=== PATIENT | female | born 1980 | race Caucasian/White ===

== ENCOUNTER 2016-11-11 17:34 | Emergency (ER) | payer BC ==
[2016-11-11 17:46] VITALS: BP 110/74
--- NOTE | 2016-11-11 17:48 | UC ---
Throat Pain/Nasal Heber HPI - HPI Summary HPI Summary: patient has had 7/10 sore thraot for 2 days, fever and cough - History of Current Complaint Stated Complaint: SORE THROAT Hx Obtained From: Patient Hx Last Menstrual Period: 03/10/16 ?: No Onset/Duration: Sudden Onset, Lasting Days Severity: Severe Pain Intensity: 7 Pain Scale Used: 0-10 Numeric Cough: Nonproductive Associated Signs & Symptoms: Positive: Dysphagia, Fever - Epiglottits Risk Factors Epiglottis Risk Factors: Negative - Allergies/Home Medications Allergies/Adverse Reactions: Allergies Allergy/AdvReac Type Severity Reaction Status Date / Time Oxycodone [From Percocet] AdvReac Vomiting Verified 11/11/16 17:46 Home Medications: Home Medications Ascorbic Acid TAB* [Vitamin C TAB*] 500 mg PO DAILY 11/11/16 [History Confirmed 11/11/16] Cholecalciferol [Vitamin D3] 2,000 unit PO DAILY 11/11/16 [History Confirmed ] PMH/Surg Hx/FS Hx/Imm Hx Previously Healthy: Yes Endocrine History Of: Reports: Thyroid Disease - hypo Cancer History Of: Denies: Breast Cancer - Surgical History Surgical History: Yes Surgery Procedure, Year, and Place: 2 c-sections. tubal ligation. gallbladder. fibroids. lasik eye - Family History Known Family History: Negative: Cardiac Disease, Hypertension - Social History Alcohol Use: Occasionally Alcohol Amount: weekends Substance Use Type: None Smoking Status (MU): Never Smoked Tobacco Review of Systems Constitutional: Fever, Chills Skin: Negative Eyes: Negative ENT: Sore Throat Respiratory: Cough Cardiovascular: Negative Gastrointestinal: Negative Genitourinary: Negative Motor: Negative Neurovascular: Negative Musculoskeletal: Negative Neurological: Negative Psychological: Negative All Other Systems Reviewed And Are Negative: Yes Physical Exam Triage Information Reviewed: Yes Appearance: Well-Nourished, Ill-Appearing, Pain Distress Vital Signs Reviewed: Yes Eye Exam: Normal Eyes: Positive: Conjunctiva Clear ENT Exam: Normal ENT: Positive: Normal ENT inspection, Hearing grossly normal, Pharyngeal erythema, Nasal congestion, TMs normal, Tonsillar swelling, Tonsillar exudate Dental Exam: Normal Neck exam: Normal Neck: Positive: Supple, Nontender, No Lymphadenopathy Respiratory Exam: Normal Respiratory: Positive: Chest non-tender, No respiratory distress, No accessory muscle use, Wheezing, Inspiration Cardiovascular Exam: Normal Cardiovascular: Positive: RRR, No Murmur, Pulses Normal Abdominal Exam: Normal Abdomen Description: Positive: Nontender, No Organomegaly, Soft Bowel Sounds: Positive: Present Musculoskeletal Exam: Normal Musculoskeletal: Positive: Strength Intact, ROM Intact, No Edema Neurological Exam: Normal Psychological Exam: Normal Skin Exam: Normal Throat Pain/Nasal Course/Dx - Course Course Of Treatment: hx obtained, exam performed, meds reviewed, strep test obtained. - Differential Dx/Diagnosis Provider Diagnoses: bronchitis Discharge - Discharge Plan Condition: Stable Disposition: HOME Prescriptions: Albuterol HFA INHALER* [Ventolin HFA Inhaler*] 2 puff INH Q4H PRN #1 mdi PRN Reason: Cough Patient Education Materials: Acute Bronchitis (ED) Additional Instructions: Take the medication as prescribed. Increase your fluid intake and get plenty of rest. Tylenol and Ibuprofen as needed for pain and fever.
== END 2016-11-11 18:30 | disposition home or self-care (01) ==
LOC: UCCORT 17:34
DX: J40 Bronchitis, not specified as acute or chronic (principal); Z88.5 Allergy status to narcotic agent
CPT/HCPCS: 87651; 99212; G0463

== ENCOUNTER 2017-03-09 08:55 | Emergency (ER) | payer BC ==
[2017-03-09 11:21] VITALS: BP 117/72
--- NOTE | 2017-03-09 11:41 | UC ---
Complaint Female HPI - HPI Summary HPI Summary: 2 week history of increasing pain and tenderness in the right posterior labia, consistent with a Bartholin's cyst. Increasing pain today, not controlled with analgesics. Dr. Mario's office sent her here because they are not able to see her until next week. - History Of Current Complaint Chief Complaint: UCSkin Stated Complaint: BARTHOLIN CYST Time Seen by Provider: 03/09/17 10:16 Hx Obtained From: Patient Hx Last Menstrual Period: 02/09/17 ?: No Onset/Duration: Gradual Onset, Lasting Weeks - 2 Timing: Constant Severity Initially: Moderate Severity Currently: Moderate Pain Intensity: 8 Pain Scale Used: 0-10 Numeric Character: Dull Aggravating Factor(s): Movement Alleviating Factor(s): Position Associated Signs And Symptoms: Positive: Negative - Risk Factors Ectopic Risk Factor: Negative Ovarian Torsion Risk Factor: Negative - Allergies/Home Medications Allergies/Adverse Reactions: Allergies Allergy/AdvReac Type Severity Reaction Status Date / Time Oxycodone [From Percocet] AdvReac Vomiting Verified 03/09/17 09:30 Home Medications: Home Medications Naproxen TAB* [Naprosyn 250 mg TAB*] 250 mg PO Q8H PRN 03/09/17 [History Confirmed 03/09/17] PMH/Surg Hx/FS Hx/Imm Hx Endocrine History: Hypothyroidism GI/ History: Other - irritable bowel syndrome and gastroparesis Other GI/ History: Cesarian sections - Surgical History Surgical History: Yes Surgery Procedure, Year, and Place: 2 c-sections. tubal ligation. gallbladder. fibroids. 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 Past cholecystectomy Genitourinary: Other - vulvar pain Motor: Negative Neurovascular: Negative Musculoskeletal: Negative Neurological: Negative Psychological: Negative All Other Systems Reviewed And Are Negative: Yes Physical Exam Triage Information Reviewed: Yes Appearance: Pain Distress - moderate., Thin Vital Signs: Initial Vital Signs Temp 99.8 F 03/09/17 09:32 Pulse 93 03/09/17 09:32 Resp 16 03/09/17 09:32 BP 121/59 03/09/17 09:32 Pulse Ox 100 03/09/17 09:32 Vital Signs Reviewed: Yes ENT Exam: Normal Respiratory: Positive: Lungs clear Cardiovascular: Positive: RRR, No Murmur Abdomen Description: Positive: Nontender, Soft, Other: - right posterior vulva with 5 x 6 cm cyst without pointing, firm, exquisitely tender. Musculoskeletal Exam: Normal Neurological Exam: Normal Psychological Exam: Normal Skin Exam: Normal Complaint Female Dx - Course Course Of Treatment: Bartholin's cyst - Differential Dx/Diagnosis Differential Diagnosis/HQI/PQRI: Bartholin Cyst Provider Diagnoses: Bartholin's cyst Discharge - Discharge Plan Condition: Stable Disposition: HOME Patient Education Materials: Bartholin Cyst (ED) Referrals: Vineet Oneal DO [Primary Care Provider] - Maliha Aggarwal MD [Medical Doctor] - Additional Instructions: You have an appointment with Dr. Maliha Aggarwal at [facility] this afternoon at 13:45 (seeing Dr. Aggarwal at 14:00--requested to arrive for paper work prior to the visit.
== END 2017-03-09 12:40 | disposition home or self-care (01) ==
LOC: UCCORT 08:55
DX: N75.0 Cyst of Bartholin's gland (principal); E03.9 Hypothyroidism, unspecified; K58.9 Irritable bowel syndrome, unspecified; K31.84 Gastroparesis; Z90.49 Acquired absence of other specified parts of digestive tract; Z88.5 Allergy status to narcotic agent
CPT/HCPCS: 99212; G0463

== ENCOUNTER 2017-03-13 11:26 | Day surgery (SDC) | payer BC ==
[2017-03-13] MEDS ORDERED: Ondansetron INJ* 2 MG/ML VIAL IV ONE (12:33)
[2017-03-13] MEDS ORDERED: Morphine INJ* 4 MG/ML 1 ML SYRINGE IV ONE (12:33)
[2017-03-13] MEDS ORDERED: NS 0.9% 1000 ML* 1,000 ML IV ONE (12:33)
[2017-03-13 13:26] LABS: Hematocrit 42 % (35-47); Hemoglobin 14.1 g/dl (12.0-16.0); Mean Corpuscular HGB Conc 34 g/dl (31-36); Mean Corpuscular Hemoglobin 32 pg (27-31); Mean Corpuscular Volume 95 fL (80-97); Mean Platelet Volume 9 um3 (7.4-10.4); Red Blood Count 4.39 10^6/ul (4.0-5.4); Red Cell Distribution Width 12 % (10.5-15); White Blood Count 16.4 10^3/ul (3.5-10.8)
[2017-03-13 13:38] LABS: ALT 11 U/L (7-52); Albumin 4.1 g/dL (3.2-5.2); Alkaline Phosphatase 70 U/L (34-104); BUN/Creatinine Ratio 17.6 (8-20); Blood Urea Nitrogen 12 mg/dL (6-24); C Reactive Protein 28.37 mg/L (< 5.00); CO2 Carbon Dioxide 22 mmol/L (22-32); Calcium 9.8 mg/dL (8.6-10.3); Chloride 105 mmol/L (101-111); EGFR African American 125.2 (>60); EGFR Non-African American 97.4 (>60); Globulin 4.4 g/dL (2-4); Glucose 82 mg/dL (70-100); Sodium 135 mmol/L (133-145); Total Protein 8.5 g/dL (6.4-8.9)
[2017-03-13 14:29] LABS: Anion Gap 8 mmol/L (2-11)
--- NOTE | 2017-03-13 14:33 | ED ---
GI/ HPI - HPI Summary HPI Summary: Patient underwent drainage of a Bartholen's cyst [address] Francis at [facility]. Since then she has had increased swelling, pain and redness. She denies fever, chills or constitutional symptoms. She call [facility] today who told her to come to the ED. - History of Current Complaint Chief Complaint: EDUrogenitalProblems Time Seen by Provider: 03/13/17 12:08 Stated Complaint: INFECTED CYST/SENT BY [facility]. Hx Obtained From: Patient, Family/Oyster Buyer Onset/Duration: Started Days Ago Timing: Constant Severity: Mild Current Severity: Severe Pain Intensity: 9 Location of Pain: Groin - right labia Additional Location for Females: Vulva Pain Characteristics: Sharp, Aching, Pressure Associated Signs and Symptoms: Positive: Negative. Negative: Fever Additional Signs & Symptoms: Positive: Genital Swelling Aggravating Factor(s): Movement, Activity Alleviating Factor(s): Nothing - Allergy/Home Medications Allergies/Adverse Reactions: Allergies Allergy/AdvReac Type Severity Reaction Status Date / Time Oxycodone [From Percocet] AdvReac Vomiting Verified 03/09/17 09:30 PMH/Surg Hx/FS Hx/Imm Hx Endocrine/Hematology History: Reports: Hx Thyroid Disease - hypo - Cancer History Hx Chemotherapy: No Hx Radiation Therapy: No - Surgical History Surgery Procedure, Year, and Place: 2 c-sections. tubal ligation. gallbladder. fibroids. lasik eye Infectious Disease History: No Infectious Disease History: Denies: Traveled Outside the [place] in Last 30 Days - Family History Known Family History: Positive: None Negative: Cardiac Disease, Hypertension - Social History Occupation: Employed Full-time Lives: With Family Alcohol Use: Occasionally Alcohol Amount: weekends Substance Use Type: Reports: None Smoking Status (MU): Never Smoked Tobacco Review of Systems Negative: Fever, Chills Positive: pain - vaginal and right labia majora All Other Systems Reviewed And Are Negative: Yes Physical Exam Triage Information Reviewed: Yes Vital Signs On Initial Exam: Initial Vitals Temp Pulse Resp BP Pulse Ox 99.1 F 105 18 117/77 99 03/13/17 11:50 03/13/17 11:50 03/13/17 11:50 03/13/17 11:50 03/13/17 11:50 Vital Signs Reviewed: Yes Appearance: Positive: Well-Appearing, Pain Distress, Thin Skin: Positive: Warm, Skin Color Reflects Adequate Perfusion, Dry, Soft Head/Face: Positive: Normal Head/Face Inspection Eyes: Positive: EOMI, JIM, Conjunctiva Clear ENT: Positive: Hearing grossly normal Respiratory/Lung Sounds: Positive: Clear to Auscultation, Breath Sounds Present Cardiovascular: Positive: RRR Abdomen Description: Positive: Soft. Negative: Nontender Bowel Sounds: Positive: Present Pelvic Exam: Positive: other - right labia majora edema; patient will not let me touch the area Musculoskeletal: Positive: Strength/ROM Intact Neurological: Positive: Sensory/Motor Intact, Alert, Oriented to Person Place, Time, NV Bundle Intact Distally, Abnormal Gait Psychiatric: Positive: Affect/Mood Appropriate AVPU Assessment: Alert - Abundio Coma Scale Coma Scale Total: 15 Diagnostics - Vital Signs Vital Signs Temp Pulse Resp BP Pulse Ox 03/13/17 13:16 83 99 03/13/17 13:15 116/66 03/13/17 13:07 18 03/13/17 12:15 99.1 F 105 18 117/77 99 03/13/17 11:50 99.1 F 105 18 117/77 99 - Laboratory Lab Results: Lab Results 03/13/17 03/13/17 Range/Units 13:15 13:15 WBC 16.4 H (3.5-10.8) 10^3/ul RBC 4.39 (4.0-5.4) 10^6/ul Hgb 14.1 (12.0-16.0) g/dl Hct 42 (35-47) % MCV 95 (80-97) fL MCH 32 H (27-31) pg MCHC 34 (31-36) g/dl RDW 12 (10.5-15) % Plt Count 271 (150-450) 10^3/ul MPV 9 (7.4-10.4) um3 Neut % (Auto) 83.3 H (38-83) % Lymph % (Auto) 9.1 L (25-47) % [place] % (Auto) 7.2 (1-9) % Eos % (Auto) 0.1 (0-6) % Baso % (Auto) 0.3 (0-2) % Absolute Neuts (auto) 13.6 H (1.5-7.7) 10^3/ul Absolute Lymphs (auto) 1.5 (1.0-4.8) 10^3/ul Absolute Monos (auto) 1.2 H (0-0.8) 10^3/ul Absolute Eos (auto) 0 (0-0.6) 10^3/ul Absolute Basos (auto) 0.1 (0-0.2) 10^3/ul Absolute Nucleated RBC 0.02 10^3/ul Nucleated RBC % 0.1 Sodium 135 (133-145) mmol/L Potassium Pending Chloride 105 (101-111) mmol/L Carbon Dioxide 22 (22-32) mmol/L Anion Gap Pending BUN 12 (6-24) mg/dL Creatinine 0.68 (0.51-0.95) mg/dL Est GFR ( Amer) 125.2 (>60) Est GFR (Non-Af Amer) 97.4 (>60) BUN/Creatinine Ratio 17.6 (8-20) Glucose 82 (70-100) mg/dL Calcium 9.8 (8.6-10.3) mg/dL Total Bilirubin 1.40 H (0.2-1.0) mg/dL AST Pending ALT 11 (7-52) U/L Alkaline Phosphatase 70 (34-104) U/L C-Reactive Protein 28.37 H (< 5.00) mg/L Total Protein 8.5 (6.4-8.9) g/dL Albumin 4.1 (3.2-5.2) g/dL Globulin 4.4 H (2-4) g/dL Albumin/Globulin Ratio 0.9 L (1-3) Result Diagrams: 03/13/17 13:15 03/13/17 14:35 Lab Statement: Any lab studies that have been ordered have been reviewed, and results considered in the medical decision making process. GIGU Course/Dx - Diagnoses Differential Diagnoses - Female: Bartholin Cyst, Cervicitis, Hemorrhoids, , Sepsis, Urinary Tract Infection, Vaginitis Provider Diagnoses: Bartholin's gland infection - Physician Notifications Discussed Care Of Patient With: Dr. Aggarwal, [facility] Instructed by Provider To: Other - Admit to the O.R. Discharge - Discharge Plan Condition: Stable Disposition: ADMITTED TO [facility] Referrals: Vineet Oneal DO [Primary Care Provider] -
[2017-03-13] MEDS ORDERED: ceFAZolin 2 GM PREMIX(*) 2 GM/50 ML BAG IVPB SCH ×2 (14:46→15:00)
[2017-03-13] MEDS ORDERED: ceFAZolin 2 GM PREMIX(*) 2 GM/50 ML BAG IVPB ONE (14:47)
[2017-03-13 14:54] LABS: UR Preg Kit Lot# 7010135
[2017-03-13 14:55] LABS: Manual Entry Verification AS; UR Preg Internal Control QC Line Present
[2017-03-13 15:03] LABS: Urine Bacteria 1+ (Absent); Urine Bilirubin Negative (Negative); Urine Glucose Negative (Negative); Urine Nitrite Negative (Negative)
[2017-03-13] MEDS ORDERED: oxyCODONE/Acetamin 5/325 MG* TAB PO PRN (19:44)
[2017-03-13] MEDS ORDERED: HYDROmorphone* 1 MG/ML 1 ML SYR IV PRN (19:44)
[2017-03-13] MEDS ORDERED: DiMENhydriNATE IV* 50 MG/ML VIAL IV PUSH PRN (19:44)
[2017-03-13] MEDS ORDERED: Ibuprofen TAB* 600 MG PO PRN (20:38)
[2017-03-13 21:40] VITALS: BP 114/74
--- NOTE | 2017-03-14 17:55 | OP ---
DATE OF OPERATION: 03/13/17 - [facility] DATE OF : 78 SURGEON: Maliha Aggarwal MD ANESTHESIOLOGIST: Dr. Robles. ANESTHESIA: General endotracheal anesthesia with LMA. PRE-OP DIAGNOSIS: Right Bartholin's abscess. POST-OP DIAGNOSIS: Right Bartholin's abscess. OPERATIVE PROCEDURE: Incision, drainage, and marsupialization of the Bartholin' s abscess. FINDINGS: A 5 cm in width x 6 cm in height right Bartholin's abscess with some surrounding edema, also large amount of pus drained. CONDITION: The patient was brought to recovery room awake and in stable condition. COMPLICATIONS: None. COUNT: Sponge, lap, and needle count were correct x2. DESCRIPTION OF PROCEDURE: The patient was brought to the operating room. When general anesthesia was found to be adequate, the patient was prepped and draped in the usual sterile fashion in the dorsal lithotomy position. A time-out was performed. There was no drainage from previous incision site. A 1.5-cm elliptical incision was made just over the abscess on the inner aspect of the right labia, just lateral to the hymenal ring. Large amount of pus was drained. Any loculations were gently opened with a Luba clamp. The cyst wall was then sewn to the mucosa with 6 interrupted sutures of 4-0 Vicryl. Excellent hemostasis was achieved. Sponge, lap, and needle count were correct x2 and the patient was brought to recovery room awake and in stable condition. [id number]/CPS #: [id number] [facility]
== END 2017-03-13 19:07 | disposition home or self-care (01) ==
LOC: ED 11:26 → OR 19:07
PROVIDERS: ATTEND Obstetrics & Gynecology
DX: N75.1 Abscess of Bartholin's gland (principal)
CPT/HCPCS: 36415; 80053; 81003; 81015; 81025; 85025; 86140; 87070; 87077; 87086; 87186; 87205; J0690; J2270; J2405

== ENCOUNTER 2017-06-06 08:52 | Emergency (ER) | payer BC ==
[2017-06-06 09:14] VITALS: BP 124/71
--- NOTE | 2017-06-06 09:23 | UC ---
Complaint Female HPI - HPI Summary HPI Summary: burning with urination x 1 day + frequency, urgency, no fever, no chills, no flank pain - History Of Current Complaint Chief Complaint: UCGU Stated Complaint: URINARY COMPLAINT Time Seen by Provider: 06/06/17 09:04 Hx Obtained From: Patient Hx Last Menstrual Period: one week ?: No Onset/Duration: Gradual Onset, Lasting Days - 1, Still Present Timing: Constant Severity Initially: Moderate Severity Currently: Moderate Character: Burning Aggravating Factor(s): Urination Associated Signs And Symptoms: Negative: Fever, Back Pain, Vaginal Bleeding/ Discharge, Vaginal Discharge, Nausea, Vomiting(# Of Episodes =), Genital Swelling, Genital Blisters, Retained Foregin Body (Specify) - Allergies/Home Medications Allergies/Adverse Reactions: Allergies Allergy/AdvReac Type Severity Reaction Status Date / Time Oxycodone [From Percocet] AdvReac Vomiting Verified 06/06/17 09:13 Home Medications: Home Medications Probiotic Product [Align] 4 mg PO DAILY 06/06/17 [History Confirmed 06/06/17] PMH/Surg Hx/FS Hx/Imm Hx Previously Healthy: Yes - Surgical History Surgical History: Yes Surgery Procedure, Year, and Place: 2 c-sections; marsupialization 02/2017. tubal ligation. gallbladder. fibroids. lasik eye - Family History Known Family History: Positive: None Negative: Cardiac Disease, Hypertension, Diabetes - Social History Alcohol Use: Occasionally Alcohol Amount: weekends Substance Use Type: None Smoking Status (MU): Never Smoked Tobacco - Immunization History Most Recent Tetanus Shot: unknown Review of Systems Constitutional: Negative Skin: Negative Eyes: Negative ENT: Negative Respiratory: Negative Cardiovascular: Negative Gastrointestinal: Negative Genitourinary: Dysuria, Frequency, Urgency Motor: Negative Neurovascular: Negative Musculoskeletal: Negative Neurological: Negative Psychological: Negative Is Patient Immunocompromised?: No All Other Systems Reviewed And Are Negative: Yes Physical Exam Triage Information Reviewed: Yes Appearance: Well-Appearing, No Pain Distress, Well-Nourished Vital Signs: Initial Vital Signs Temp 98.7 F 06/06/17 09:04 Pulse 81 06/06/17 09:04 Resp 18 06/06/17 09:04 BP 124/71 06/06/17 09:04 Vital Signs Reviewed: Yes Eyes: Positive: Conjunctiva Clear ENT: Positive: Normal ENT inspection, Hearing grossly normal, Pharynx normal Neck exam: Normal Neck: Positive: Supple, Nontender, No Lymphadenopathy Respiratory: Positive: Chest non-tender, Lungs clear, Normal breath sounds Cardiovascular: Positive: RRR, No Murmur, Pulses Normal Abdomen Description: Positive: Nontender, Soft. Negative: CVA Tenderness (R), CVA Tenderness (L), Distended, Guarding Bowel Sounds: Positive: Present Complaint Female Dx - Differential Dx/Diagnosis Provider Diagnoses: UTI Discharge - Discharge Plan Condition: Stable Disposition: HOME Prescriptions: Sulfamethox/Trimethoprim DS* [Bactrim DS 800/160 TAB*] 1 tab PO BID #14 tab Patient Education Materials: Urinary Tract Infection in Women (ED) Referrals: Vineet Oneal DO [Primary Care Provider] - If Needed
== END 2017-06-06 09:25 | disposition home or self-care (01) ==
LOC: UCCORT 08:52
DX: N39.0 Urinary tract infection, site not specified (principal); B96.20 Unspecified Escherichia coli [E. coli] as the cause of diseases classified elsewhere; Z88.5 Allergy status to narcotic agent
CPT/HCPCS: 81003; 87077; 87086; 87186; 99212; G0463

== ENCOUNTER 2017-12-17 09:29 | Day surgery (SDC) | payer BC ==
[2017-12-17] MEDS ORDERED: Morphine INJ* 4 MG/ML 1 ML SYRINGE (NEW SYRINGE VERSION) IV ONE (10:32)
[2017-12-17] MEDS ORDERED: Ondansetron INJ* 2 MG/ML VIAL IV ONE (10:32)
[2017-12-17 10:48] LABS: ABS Basophils 0 10^3/ul (0-0.2); ABS Eosinophils 0 10^3/ul (0-0.6); ABS Lymphocytes 1.6 10^3/ul (1.0-4.8); ABS Monocytes 0.6 10^3/ul (0-0.8); ABS Nucleated RBC 0 10^3/ul; Eosinophil % 0.3 % (0-6); Hematocrit 40 % (35-47); Hemoglobin 13.6 g/dl (12.0-16.0); Lymphocyte % 19.2 % (25-47); Mean Corpuscular HGB Conc 34 g/dl (31-36); Mean Corpuscular Hemoglobin 33 pg (27-31); Mean Corpuscular Volume 97 fL (80-97); Mean Platelet Volume 8.9 um3 (7.4-10.4); Nucleated Red Blood Cells % 0; Platelet Count 238 10^3/ul (150-450); Red Blood Count 4.13 10^6/ul (4.0-5.4); Red Cell Distribution Width 12 % (10.5-15); White Blood Count 8.2 10^3/ul (3.5-10.8)
--- NOTE | 2017-12-17 10:50 | ED ---
GI/ HPI - HPI Summary HPI Summary: Patient here with what she believes is a Bartholin cyst along the right side of her vagina. She reports symptoms started a week and half ago with an itching sensation along the right side of her vagina. She suspected this may have been a yeast infection so tried [id number] treatment without relief. She reports no discharge associated with this pruritus. Over the course of the next couple days the area started to swell and she suspected she may have a Bartholin cyst. This was quite painful and so she came to the emergency department on Monday for evaluation. Per patient, was told this was most likely not large enough to require drainage or surgery - sent home to monitor ( notes confirm providers - ED and DEVELOPMENT CHEMIST - did not feel this was large enough for drainage - offered anbx in the interum however pt declined). She reports since then, the area has become much more swollen and painful causing her to feel like her "vagina is lopsided" and has pain with wiping and walking. In the past 2 days, she also reports she's developed a vaginal discharge which is comparable to a previous bacterial vaginosis infection she's had. She called her truck spotter who prescribed Flagyl for her by mouth over the phone. She's been taking this however did not take this morning as this causes her to have diarrhea and she did not want to have diarrhea during her evaluation here today. She denies fevers, chills, abdominal pain, lymph node swelling in her groin area. She is however in a lot of pain and is requesting a marsupialization of this area as she had this done 1 year ago on the same side. She feels the swelling started further up into her vagina this time as opposed to last time. Last time she also had drainage performed in DEVELOPMENT CHEMIST's office however this did not alleviate the pain as swelling returned same day, cyst grew and resulted in marsupialization surgery anyway. She requests to not have this drained today but rather to have appropriate surgery as necessary as she's fearful a simple drainage will not take care of the issue. She reports she felt like a "new woman" after marsupialization surgery - pain gone, was able to walk and no issues since until now. Past medical history significant for gastroparesis and IBS status post cholecystectomy. She takes and struggles with bowel symptoms daily. She also has hypothyroidism which was triggered during a - treats with levothyroxine. She had a tubal ligation and has had a vascetomy. LMP 3 weeks ago. She admits to complications as a result of c-sections (both pregnancies were ). She vomited after an epidural which causes a hole which did not take blood patch well. She also developed a seroma after one of the c-sections. She is otherwise healthy and denies cardiac/pulm issues - no sleep apnea, dental implants, etc. She has oxycodone listed in her allergies but this is simply here as she had nausea w/ vomiting - no hives or anaphylactic sx. Last PO intake was at 7:00am today - 1/2 c coffee. - History of Current Complaint Chief Complaint: EDRashSkinAbscess Time Seen by Provider: 12/17/17 09:49 Stated Complaint: BARTHILUM CYST Hx Obtained From: Patient Hx Last Menstrual Period: one week Pain Intensity: 10 - Allergy/Home Medications Allergies/Adverse Reactions: Allergies Allergy/AdvReac Type Severity Reaction Status Date / Time oxycodone Allergy Vomiting Verified 12/17/17 09:32 Home Medications: Home Medications Bifidobacterium Infantis [Align] 4 mg PO DAILY 12/17/17 [History Confirmed 12/17] metroNIDAZOLE TAB* [Flagyl 250 mg TAB*] 500 mg PO Q12HR 12/17/17 [History Confirmed 12/17/17] PMH/Surg Hx/FS Hx/Imm Hx Previously Healthy: Yes Endocrine/Hematology History: Reports: Hx Thyroid Disease - hypo -takes synthroid Cardiovascular History: Denies: Hx Atrial Fibrillation, Hx Congenital Heart Disease, Hx Myocardial Infarction Respiratory History: Denies: Hx Asthma, Hx Sleep Apnea GI History: Reports: Hx Gall Bladder Disease - s/p cholecystectomy, Hx Irritable Bowel, Other GI Disorders - gastroparesis History: Reports: Other Problems/Disorders - Rt Bartholin's cyst requiring marsupialization - Cancer History Hx Chemotherapy: No Hx Radiation Therapy: No - Surgical History Surgery Procedure, Year, and Place: 2 c-sections; marsupialization 02/2017. tubal ligation. gallbladder. fibroids. lasik eye Infectious Disease History: No Infectious Disease History: Denies: Traveled Outside the [place] in Last 30 Days - Family History Known Family History: Positive: None Negative: Cardiac Disease, Hypertension, Diabetes - Social History Lives: With Family Alcohol Use: Weekly Alcohol Amount: weekends wine Hx Substance Use: No Substance Use Type: Reports: None Hx Tobacco Use: No Smoking Status (MU): Never Smoked Tobacco Review of Systems Constitutional: Negative Negative: Fever, Chills, Fatigue Cardiovascular: Negative Respiratory: Negative Gastrointestinal: Negative Positive: see HPI Musculoskeletal: Negative Skin: Negative Neurological: Negative Positive: Anxious All Other Systems Reviewed And Are Negative: Yes Physical Exam Triage Information Reviewed: Yes Vital Signs On Initial Exam: Initial Vitals Temp Pulse Resp BP Pulse Ox 98.3 F 123 18 139/101 100 12/17/17 09:32 12/17/17 09:32 12/17/17 09:32 12/17/17 09:32 12/17/17 09:32 Vital Signs Reviewed: Yes Appearance: Positive: Well-Appearing, Well-Nourished, Pain Distress Skin: Positive: Warm, Skin Color Reflects Adequate Perfusion, Dry Head/Face: Positive: Normal Head/Face Inspection Eyes: Positive: Normal, EOMI, Conjunctiva Clear ENT: Positive: Normal ENT inspection, Hearing grossly normal, Pharynx normal Respiratory/Lung Sounds: Positive: Breath Sounds Present Cardiovascular: Positive: Normal. Negative: Leg Edema Left, Leg Edema Right Abdomen Description: Positive: Nontender, No Organomegaly, Soft Pelvic Exam: Positive: Other - Rt labia w/ leonidas edema and exquisite TTP - skin clear; Rt vaginal mucosa into canal w/ erythema/edema - TTP - no lesions observed; milky/creamy vaginal d/c in introitus - no blood observed; no palpably enlarged LN's in groin B/L - skin is clear throughout the area Musculoskeletal: Positive: Normal, Strength/ROM Intact Neurological: Positive: Normal, Sensory/Motor Intact, Alert, Oriented to Person Place, Time, CN Intact II-III Psychiatric: Positive: Anxious - however pleasant and cooperative Diagnostics - Vital Signs Vital Signs Temp Pulse Resp BP Pulse Ox 12/17/17 10:30 87 111/65 100 12/17/17 10:00 84 119/75 100 12/17/17 09:46 97 100 12/17/17 09:44 119/70 12/17/17 09:32 98.3 F 123 18 139/101 100 - Laboratory Result Diagrams: 12/17/17 09:50 12/17/17 09:50 Lab Statement: Any lab studies that have been ordered have been reviewed, and results considered in the medical decision making process. Re-Evaluation - Re-Evaluation First Eval Change: Improved - s/p morphine Second Eval Change: Worse - pain worse s/p eval w/ Dr. Cerda - will order toradol GIGU Course/Dx - Course Course Of Treatment: Pt presents w/ Rt sided vaginal pain and swelling over the past 1-1/2 weeks. She has a history of Bartholin's Cyst in the same area and reports this feels the same. After examination, I agree this appears to be a Bartholin cyst. Labs and vitals assessed and appear to be within normal limits. Discussed w/ Dr. Cerda who agrees to see pt - after evaluating, he will take her to OR for marsupialization. She has been NPO since here (see HPI for pre-op intake). She had initial pain relief with IV morphine however after second exam of the area reports worsening of pain. Toradol ordered (okay'd by Dr. Cerda). Patient stable at time of transition of care. - Diagnoses Provider Diagnoses: Cyst of right Bartholin's gland Discharge - Sign-Out/Discharge Documenting (check all that apply): Discharge - Discharge Plan Condition: Stable Disposition: ADMITTED TO [facility] - Billing Disposition and Condition Condition: STABLE [place] [facility] [place]
[2017-12-17 10:59] LABS: EGFR Non-African American 85.2 (>60)
[2017-12-17] MEDS ORDERED: NS 0.9% 1000 ML* 1,000 ML IV SCH ×2 (11:15→13:15)
[2017-12-17] MEDS ORDERED: Naloxone* 0.4 MG/ML 1 ML VIAL IV PRN (12:38)
[2017-12-17] MEDS ORDERED: fentaNYL* 50 MCG/ML 2 ML VIAL (100 MCG VIAL) IV PRN (12:38)
[2017-12-17] MEDS ORDERED: Scopolamine 1.5 mg* PATCH TRANSDERM PRN (12:38)
[2017-12-17] MEDS ORDERED: DiMENhydriNATE IV* 50 MG/ML VIAL IV PUSH PRN (12:38)
[2017-12-17] MEDS ORDERED: Morphine INJ* 2 MG/ML 1 ML CARPUJECT IV PRN (12:38)
[2017-12-17] MEDS ORDERED: PROCHLORPERAZINE INJ 5 MG/ML 2 ML VIAL IV PRN (12:38)
[2017-12-17] MEDS ORDERED: oxyCODONE/Acetamin 5/325 MG* TAB PO PRN (12:38)
[2017-12-17] MEDS ORDERED: Famotidine IV* 10 MG/ML 2 ML (20 mg) IV ONE (12:38)
[2017-12-17] MEDS ORDERED: Ketorolac INJ* 30 MG/ML 1 ML VIAL IV PUSH ONE (13:02)
[2017-12-17] MEDS ORDERED: Midazolam* 1 MG/ML 5 ML VIAL (5 MG) ONE (14:06)
[2017-12-17] MEDS ORDERED: fentaNYL* 50 MCG/ML 2 ML VIAL (100 MCG VIAL) ONE (14:06)
[2017-12-17] MEDS ORDERED: Famotidine IV* 10 MG/ML 2 ML (20 mg) ONE (14:07)
[2017-12-17] MEDS ORDERED: Scopolamine 1.5 mg* PATCH ONE (14:07)
[2017-12-17] MEDS ORDERED: Propofol* 10 MG/ML 20 ML BTL IV PUSH ONE (15:30)
[2017-12-17] MEDS ORDERED: Ondansetron INJ* 2 MG/ML VIAL ONE (15:30)
[2017-12-17] MEDS ORDERED: Dexamethasone IV* 4 MG/ML 1 ML (4 MG) ONE (15:30)
[2017-12-17] MEDS ORDERED: PROCHLORPERAZINE INJ 5 MG/ML 2 ML VIAL ONE ×3 (15:30→17:04)
[2017-12-17] MEDS ORDERED: Lidocaine 2% PF * 5 ML VIAL ONE (15:30)
[2017-12-17] MEDS ORDERED: Morphine INJ* 10 MG/ML 1 ML CARPUJECT ONE (15:36)
[2017-12-17] MEDS ORDERED: Lidocaine 1% INJ* 10 MG/ML 30 ML SDV ONE (15:46)
[2017-12-17 17:15] VITALS: BP 118/62
--- NOTE | 2017-12-19 09:20 | OP ---
DATE OF OPERATION: 12/17/17 - SDS DATE OF : 78 SURGEON: Romeo Cerda MD ANESTHESIA: General with a laryngeal mask. PRE-OP DIAGNOSIS: Right Bartholin's abscess. POST-OP DIAGNOSIS: Right Bartholin's abscess. OPERATIVE PROCEDURE: Incision and drainage of a marsupialization of Bartholin' s glands abscess. ESTIMATED BLOOD LOSS: Minimal, less than 5 cc. SPECIMENS SENT TO PATHOLOGY: Cultures of the abscess. IV FLUIDS: She received 1 L of IV crystalloid fluid. URINE OUTPUT: Clear about 250 cc. FINDINGS: Exam under anesthesia revealed 3 to 4 cm inflamed right Bartholin's cyst abscess. DESCRIPTION OF PROCEDURE: The patient was taken to the operating room where she was identified. She was placed on the operating table where a general anesthetic was obtained without difficulty. She was then placed in the dorsal lithotomy position, prepped and draped in normal sterile fashion. At this point , attention was then brought on to the patient's perineum. The bladder was catheterized with a straight catheter and drained of clear urine. Exam under anesthesia revealed a right Bartholin's gland cyst. I decided to make an incision on the torsion between the vaginal mucosa and the Bartholin's gland cyst about 1 cm long in a vertical incision. Once the incision was made, the cyst drained of a pus-like discharge. The contents within the cyst were cultured and sent to the Pathology. I then proceeded to break the loculations within the cyst using a blunt instrument. Once the cyst was completely empties and the loculations were broken, I proceeded to irrigate the cyst with normal saline until clear water came out. I injected 1% lidocaine into the cyst as well and this drained as well. After which, I then proceeded to the incision by using a 4-0 Monocryl stitch in a purse-string suture circumferentially. Stoma was left open for the drain. At this point, all the instruments were removed from the patient's vagina. Sponge, lap and needle counts were correct x2. She was then transferred to recovery room area in stable condition. [id number]/[facility] #: [id number] MTDD
[2017-12-20] MEDS ORDERED: Scopolamine PATCH Remove* 1 NOTE MISC PATCH OFF ONE (12:39)
== END 2017-12-17 17:32 | disposition home or self-care (01) ==
LOC: ED 09:29 → OR 12:56
PROVIDERS: ATTEND Obstetrics & Gynecology
DX: N75.1 Abscess of Bartholin's gland (principal); R10.2 Pelvic and perineal pain; E03.9 Hypothyroidism, unspecified; F41.9 Anxiety disorder, unspecified; K58.9 Irritable bowel syndrome, unspecified; K31.84 Gastroparesis
CPT/HCPCS: 36415; 80053; 83605; 84702; 85025; 86140; 87070; 87073; 87077; 87186; 87205; 87640; 87641; 99284; A9270-GY; J0780; J1100; J1885; J2250; J2270; J2405; J2704; J3010

== ENCOUNTER 2018-08-19 08:18 | Emergency (ER) | payer BC ==
--- OUTSIDE RECORDS SUMMARY | 2018-08-19 08:31 | XMS REPORT | Continuity of Care Document ---
:1980 External Reference #:[id number] Author Name Anayeli Melton Care Team Providers Name Role Phone Vineet Oneal MD Primary Care Physician Unavailable Payers Type Date Identification Numbers Payment Provider Subscriber Policy Number: [id number] [employer]/[facility] Shanique Cordova PayID: [id number] [address] [address] [place] [address] Advance Directives Description No Information Available Problems Description No Information Family History Date Family Member(s) Problem(s) Comments Father Hypertension Father Hypercholesterolemia Mother Hypertension Mother Depression Mother Bipolar Disorder Children 2 First Son A&W First Daughter A&W Siblings 2 First Brother Hypertension Second Brother Alive, HX Unknown Paternal Grandfather due to [place] () Paternal Grandmother due to ALS () Maternal Grandfather due to Stroke () Maternal Grandmother due to [place] () Social History Type Date Description Comments Sex Unknown Education Highest level completed, Bachelor's Degree Marital Status Lives With Spouse Lives With Son Lives With Daughter Pets 1 dog Pets Gerbil Occupation Homemaker Tobacco Use Start: Unknown Never Smoked Cigarettes ETOH Use Occasionally consumes alcohol Tobacco Use Start: Unknown Patient has never smoked Recreational Drug Use Denies Drug Use Smoking Status Reviewed: 08/13/18 Patient has never smoked Exercise Type/Frequency Exercises sporadically Seat Belt/Car Seat Always uses seat belt Currently Active Patient is currently sexually active Contraceptive Methods Current methods include tubal ligation STD's No STD History Allergies, Adverse Reactions, Alerts Date Description Reaction Status Severity Comments 03/09/2017 Oxycodone Nausea and Vomiting Active 03/09/2017 Percocet Active Medications Medication Date Status Form Strength Qnty SIG Indications Ordering Provider Align 06/06/ Active Capsules 4mg Every Day Unknown 2016 Vitamin C 11/11/ Active Tablets 500mg Every Day Unknown 2016 Amitiza 03/27/ Active Capsules 8mcg Twice Daily Unknown 2015 Alprazolam / Active Tablets 0.75mg 1/2-1 by Unknown 0000 mouth twice a day Ferrous Gluconate / Active Unknown Levothyroxine / Active Tablets 50mcg 1 by mouth Unknown Sodium 0000 every day Multivitamins / Active Unknown Probiotic / Active Unknown Vitamin D3 / Active Unknown Metronidazole 12/15/ Hx Tablets 500mg 14tab 1 tablet Erianna 2018 - s every 12 Smith, 04/03/ hours no [facility] 2018 alcohol while taking medication Bactrim DS 06/06/ Hx Tablets 800-160mg 14tab Twice Daily Unknown 2017 - s 2017 Vicodin 03/13/ Hx Tablets 5-300mg 12tab one-two [facility] 2017 - s tablet(s) Alessia, 03/21/ by mouth M.D. 2017 q4-6 hours as needed for strong pain Ibuprofen 03/13/ Hx Tablets 600mg 24tab 1 by mouth [facility] 2016 - s q6 hours as Alessia 03/21/ needed M.D. 2016 Cephalexin 03/13/ Hx Tablets 500mg 14tab one tablet [facility] 2017 - s by mouth Alessia 03/22/ [id number] x M.D. 2017 7 days Naprosyn 03/09/ Hx Tablets 250mg Q8H Unknown 2016 - 2016 Ventolin HFA 11/11/ Hx Aerosol 108(90Bas 1unit Q4H Unknown 2016 - e) s 04/03/ mcg/Act 2018 Deltasone 11/11/ Hx Tablets 20mg 10tab Every Day Unknown 2016 - s 2016 Fergon 03/27/ Hx Tablets 240(27Fe) Every Day Unknown 2016 - mg 2017 Domperidone // Hx Unknown 2017 Naproxen /00/ Hx Unknown - 2016 Hydroxyzine HCL // Hx Unknown - 2016 Ascorbic Acid /00/ Hx Unknown - 2016 Cholecalciferol 00/00/ Hx Unknown 2016 Albuterol Sulfate 00/ Hx Unknown 2016 Prednisone // Hx Unknown 2016 Amitiza / Hx Unknown 2016 Vitamin C // Hx Unknown 2016 Flagyl / Hx Unknown 2017 Medications Administered in Office Medication Date Status Form Strength Qnty SIG Indications Ordering Provider PT SCRN Tbco Administered Injection Bk, Id as Non User 018 MD Kathryn PT SCRN Tbco Administered Injection Bk, Michelle as Non User 018 MD Kathryn Immunizations Description No Information Available Vital Signs Date Vital Result Comment 08/13/2018 9:50am BP Systolic 128 mmHg BP Diastolic 80 mmHg Height 61 inches 5'1" Weight 103.00 lb BMI (Body Mass Index) 19.5 kg/m2 Last Menstrual Period 7756879 2 Parity 2 04/03/2018 1:02pm BP Systolic 110 mmHg BP Diastolic 60 mmHg Height 61 inches 5'1" Weight 105.00 lb BMI (Body Mass Index) 19.8 kg/m2 2 Parity 2 12/22/2017 10:20am BP Systolic 110 mmHg BP Diastolic 66 mmHg Height 61 inches 5'1" Weight 107.00 lb BMI (Body Mass Index) 20.2 kg/m2 Last Menstrual Period [id number] 2 Parity 2 12/12/2017 12:00am BP Systolic 100 mmHg BP Diastolic 72 mmHg Body Temperature 98.9 F Heart Rate 105 /min Respiratory Rate 17 /min Height 61 inches Weight 105.00 lb BMI (Body Mass Index) 19.8 kg/m2 04/24/2017 9:53am BP Systolic 110 mmHg BP Diastolic 64 mmHg Height 61 inches 5'1" Weight 106.00 lb BMI (Body Mass Index) 20.0 kg/m2 Last Menstrual Period [id number] 2 Parity 2 03/28/2017 1:15pm BP Systolic 114 mmHg BP Diastolic 78 mmHg Body Temperature 98.2 F Height 61 inches 5'1" Weight 102.00 lb BMI (Body Mass Index) 19.3 kg/m2 2 Parity 2 03/16/2017 1:25pm BP Systolic 112 mmHg BP Diastolic 66 mmHg Body Temperature 97.8 F Oral Height 61 inches 5'1" Weight 105.00 lb BMI (Body Mass Index) 19.8 kg/m2 Last Menstrual Period 8308101 2 Parity 2 03/09/2017 12:00am BP Systolic 117 mmHg BP Diastolic 72 mmHg Body Temperature 99.5 F Heart Rate 111 /min Respiratory Rate 20 /min Height 61 inches Weight 105.00 lb BMI (Body Mass Index) 19.8 kg/m2 03/09/2017 1:54pm BP Systolic 120 mmHg BP Diastolic 80 mmHg Height 61.5 inches 5'1.50" Weight 105.00 lb BMI (Body Mass Index) 19.5 kg/m2 Last Menstrual Period 5549987 2 Parity 2 Results Test Date Facility Test Result H/L Range Note Laboratory test 04/03/2018 [facility] Cytology SEE RESULT [address] [place] [address] BELOW [phone] Wound 03/13/2017 [facility] Wound/Misc SEE RESULT 2 Culture/[place] [address] Culture-Gram BELOW [phone] Stain 1 SEE RESULT BELOW Name: JENNIFER CORDOVA : [address]: Kathryn Bourgeois MD Acct: [id number] Unit: [id number] AGE: 37 Location: [facility] Re04/03/18 SEX: F Status: REG REF SPEC: [id number] ALLEY: 04/03/18-[address] [facility] [address]: Kathryn Bourgeois MD REQ: [id number] RECD: 04/03/18 STATUS: SOUT _ ORDERED: TP IMAGE ANALYS, HPV/Thin Prep COMMENTS: [id number] Negative for Intraepithelial lesion or Malignancy A. Ectocervical/Endocervical Specimen Adequacy: Satisfactory of evaluation Transformation zone component identified Patient Information: HPV: High risk HPV RNA testing regardless of pap results. Actual Specimen Date: 04/03/18 Date Time Test Result Flag (u) Normal Range 04/03/181338 @ HPV RNA Negative Negative @ @ The high-risk HPV types detected by the assay include: 16, @ 18, 31, 33, 35, 39, 45, 51, 52, 56, 58, 59, 66, and 68. Signed by and Reported on: ABRAHAM Melchor(ASCP) [id number] This Pap test was evaluated with the assistance of the Scan•JourPrep Test Imaging System. Due to cytologic findings at the public affairs manager microscope, comprehensive manual rescreening by a Double End Chucking Machine Operator may be required. The Pap Smear is a screening test designed to aid in the detection of premalignant and malignant conditions of the uterine cervix. It is not a diagnostic procedure and should not be used as the sole means of detecting cervical cancer. Both false- positive and false- negative reports do occur. Depending on your risk status, a Pap smear should be obtained and evaluated every 1-3 years. END OF REPORT DEPARTMENT OF PATHOLOGY, [address] [place] [address] Jai Dyer M.D. Director [facility] # [id number] 2 SEE RESULT BELOW Name: JENNIFER CORDOVA : [address]: Maliha Aggarwal MD Acct: [id number] Unit: [id number] AGE: 36 Location: [place] Re03/13/17 SEX: F Status: REG SDC SPEC: [id number] ALLEY: 03/13/[address]: Maliha Aggarwal MD REQ: [id number] RECD: 03/13/17 STATUS: NEIL BUTCHER DR: Vineet Oneal MD _ SOURCE: CYST SPDESC: ORDERED: Culture Stain QUERIES: Specimen Description Bartholin's abscess Procedure Result Reported Site Wound/Misc Gram Stain Final 03/14/17- 0831 ML 4+ Neutrophils 1+ Epithelial Cells 2+ Gram Negative Bacilli 1+ Gram Positive Bacilli Wound/Misc Culture Final 03/15/17- 1007 ML Organism 1 ESCHERICHIA COLI Quantity 2+ 1. ESCHERICHIA COLI M.I.C. RX --------- ------ Ampicillin <=2 S Cefazolin <=4 S Cefepime <=1 S Ceftriaxone <=1 S Ciprofloxacin <=0.25 S Gentamicin <=1 S Levofloxacin <=0.12 S Meropenem <=0.25 S Nitrofurantoin <=16 S Tetracycline <=1 S Pipercillin/Tazobactam <=4 S Trimethoprim/Sulfamethoxazole <=20 S Amoxicillin/Clavulanic Acid <=2 S Aztreonam <=1 S CONTINUED ON NEXT PAGE * ML=Testing performed at Main Lab DEPARTMENT OF PATHOLOGY, [address] [place] [address] Jai Dyer M.D. Director [facility] # [id number] Patient: JENNIFER CORDOVA [id number] (Continued) Specimen: [id number] Collected: 03/13/17 Received: 03/13/17 (Continued) Procedure Result Reported Site Wound/Misc Culture Final (continued) Contact the Microbiology Department for any additional antibiotic reporting. * ML - MAIN LAB ([facility]) . END OF REPORT * ML=Testing performed at Main Lab DEPARTMENT OF PATHOLOGY, [address] [place] [address] Jai Dyer M.D. Director [facility] # [id number] Procedures Date Code Description Status 03/13/2017 92149 Marsupialization Bartholin's Gland Cyst Completed 03/09/2017 41931 I & D Abscess Bartholin's Gland Completed 11/16/2016 15050929 Mammogram Completed Encounters Type Date Location Provider Dx Diagnosis Office Visit 04/03/2018 [facility] Kathryn Bourgeois, Z01.419 Encntr for [employer] exam 1:00p (general) (routine) w/o abn findings Office Visit 12/22/2017 [facility] Office Kathryn Bourgeois, N75.1 Abscess of 10:30a MD Bartholin's gland Office Visit 04/24/2017 [facility] Office Barry Edmond Encntr for f/u exam 10:00a M.DJan aft trtmt for cond oth than malig neoplm Office Visit 03/16/2017 [facility] Office Sudhir Francis N75.1 Abscess of 2:00p M.Moy Bartholin's gland Plan of Treatment 04/03/2018 - Kathryn Bourgeois MDZ01.419 Encounter for gynecological examination (general) (routine) without abnormal findingsComments:Maintain routine exercise and healthy diet. Try to get adequate sleep at night to improve your overall health (most people need >8 hours!)Perform periodic breast exams at various times of the month to become familiar with your breast tissue so you don't have to worry about your normal lumps and bunps and are more likely to notice something abnormal. Return for annual exam in 1 year or as needed ifconcerns arise.
--- NOTE | 2018-08-19 09:25 | ED ---
GI/ HPI - HPI Summary HPI Summary: Patient is a 38-year-old female who presents emergency department for evaluation of Bartholin's gland cyst. Patient notes she's had recurrent abscesses in has had marsupialization in the past. Pt. states she had catheter placed by her [facility] [employer] this past week and drain fell out on Monday. Pt. states since she has had increased pain and swelling. She denies fever, chills, N/V. Symptoms are mild in severity. Walking makes symptoms worse. Nothing makes sxs better. Pt. notes that she is coming to ER hoping she will be able to have surgery to take gland out. - History of Current Complaint Chief Complaint: EDUrogenitalProblems Time Seen by Provider: 08/19/18 08:25 Stated Complaint: CYST Hx Obtained From: Patient Hx Last Menstrual Period: one week Pain Intensity: 4 - Allergy/Home Medications Allergies/Adverse Reactions: Allergies Allergy/AdvReac Type Severity Reaction Status Date / Time oxycodone Allergy Vomiting Verified 08/19/18 08:20 PMH/Surg Hx/FS Hx/Imm Hx Previously Healthy: Yes Endocrine/Hematology History: Reports: Hx Thyroid Disease - hypo -takes synthroid Cardiovascular History: Denies: Hx Atrial Fibrillation, Hx Congenital Heart Disease, Hx Myocardial Infarction Respiratory History: Denies: Hx Asthma, Hx Sleep Apnea GI History: Reports: Hx Gall Bladder Disease - s/p cholecystectomy, Hx Irritable Bowel, Other GI Disorders - gastroparesis History: Reports: Other Problems/Disorders - Rt Bartholin's cyst requiring marsupialization - Cancer History Hx Chemotherapy: No Hx Radiation Therapy: No - Surgical History Surgery Procedure, Year, and Place: 2 c-sections; marsupialization 02/2017. tubal ligation. gallbladder. fibroids. lasik eye Infectious Disease History: No Infectious Disease History: Denies: Traveled Outside the [place] in Last 30 Days - Family History Known Family History: Positive: None Negative: Cardiac Disease, Hypertension, Diabetes - Social History Occupation: Unemployed Lives: With Family Alcohol Use: Weekly Alcohol Amount: weekends wine Hx Substance Use: No Substance Use Type: Reports: None Hx Tobacco Use: No Smoking Status (MU): Never Smoked Tobacco Review of Systems Constitutional: Negative Negative: Fever, Chills Gastrointestinal: Negative Negative: Abdominal Pain, Vomiting, Nausea Positive: other - vaginal swelling All Other Systems Reviewed And Are Negative: Yes Physical Exam Triage Information Reviewed: Yes Vital Signs On Initial Exam: Initial Vitals Temp Pulse Resp BP Pulse Ox 99.1 F 112 16 141/88 100 08/19/18 08:20 08/19/18 08:20 08/19/18 08:20 08/19/18 08:20 08/19/18 08:20 Vital Signs Reviewed: Yes Appearance: Positive: Well-Appearing - Pt. sitting on bed in NAD. present. Skin: Positive: Warm, Dry Head/Face: Positive: Normal Head/Face Inspection Eyes: Positive: Normal, EOMI Neck: Positive: Supple Pelvic Exam: Positive: Other - Exam performed with female tech in room, Arac[facility]. External genitalia unremarkable. Mild edema and pain noted to the inferior right vaginal introitus. No erythema or drainage. Neurological: Positive: Normal, CN Intact II-III Psychiatric: Positive: Affect/Mood Appropriate Diagnostics - Vital Signs Vital Signs Temp Pulse Resp BP Pulse Ox 08/19/18 08:20 99.1 F 112 16 141/88 100 - Laboratory Lab Statement: Any lab studies that have been ordered have been reviewed, and results considered in the medical decision making process. GIGU Course/Dx - Course Course Of Treatment: Pt. presenting hoping for surgical consult to have bartholin cyst removed secondary to numerous infections. She is afebrile and nontoxic. I spoke with oncall [facility], Dr. Cerda, who explains that he does not perform this procedure and pt. would need to get set [facility]pt[facility]. He recommends starting pt. on antibxs, sitz baths, and f.u with her [facility] tomorrow. This was discussed with pt. She is upset with outcome. She declines antibiotics. She will call her [facility] tomorrow for close f.u. To return to ER for increased pain, fever, vomiting or if concerned. - Diagnoses Provider Diagnoses: Bartholin gland cyst Discharge - Sign-Out/Discharge Documenting (check all that apply): Patient Departure - Discharge Plan Condition: Good Disposition: HOME Patient Education Materials: Bartholin Cyst (ED) Referrals: Nicki Davis PA [Primary Care Provider] - Kathryn Bourgeois MD [Medical Doctor] - Additional Instructions: Call your [facility] tomorrow for a close follow up appointment Sitz baths Ibuprofen for pain as directed Return to ER for increase pain, swelling, fever, vomiting or if concerned - Billing Disposition and Condition Condition: GOOD Disposition: Home
[2018-08-19 09:46] VITALS: BP 118/79
== END 2018-08-19 09:45 | disposition home or self-care (01) ==
LOC: ED 08:18
DX: N75.0 Cyst of Bartholin's gland (principal)
CPT/HCPCS: 99282

== ENCOUNTER 2019-09-23 15:33 | Emergency (ER) | payer BC ==
[2019-09-23 16:14] VITALS: BP 118/71
--- NOTE | 2019-09-23 16:45 | UC ---
Complaint Female HPI - HPI Summary HPI Summary: 39-year-old female who has had urinary frequency and mild burning on urination since yesterday. She denies any fever or chills. - History Of Current Complaint Chief Complaint: UCGU Stated Complaint: URINARY COMPLAINT Time Seen by Provider: 09/23/19 16:38 Hx Obtained From: Patient Hx Last Menstrual Period: 08/29/19 ?: No Onset/Duration: Gradual Onset Timing: Intermittent Severity Initially: Mild Severity Currently: Mild Pain Intensity: 0 Character: Burning Aggravating Factor(s): Urination Alleviating Factor(s): Nothing Associated Signs And Symptoms: Positive: Negative - Allergies/Home Medications Allergies/Adverse Reactions: Allergies Allergy/AdvReac Type Severity Reaction Status Date / Time oxycodone Allergy Severe Vomiting Verified 09/23/19 16:08 Home Medications: Home Medications Cholecalciferol TAB* [Vitamin D TAB*] 1 tab PO DAILY 09/23/19 [History Confirmed 09/23/19] PMH/Surg Hx/FS Hx/Imm Hx Previously Healthy: Yes Endocrine History: Thyroid Disease - Surgical History Surgical History: Yes Surgery Procedure, Year, and Place: 2 c-sections; 3-marsupialization 02/2017, 2017. tubal ligation. gallbladder. fibroids. lasik eye. left left leg superficial vein removed - Family History Known Family History: Positive: None Negative: Cardiac Disease, Hypertension, Diabetes - Social History Lives: With Family Alcohol Use: Weekly Alcohol Amount: weekends wine Substance Use Type: None Smoking Status (MU): Never Smoked Tobacco - Immunization History Most Recent Tetanus Shot: unknown Review of Systems All Other Systems Reviewed And Are Negative: Yes Genitourinary: Positive: Dysuria, Frequency, Urgency Is Patient Immunocompromised?: No Physical Exam Triage Information Reviewed: Yes Appearance: Well-Appearing, No Pain Distress, Well-Nourished Vital Signs: Initial Vital Signs Temp 98.2 F 09/23/19 16:06 Pulse 75 09/23/19 16:06 Resp 16 09/23/19 16:06 BP 118/71 09/23/19 16:06 Pulse Ox 100 09/23/19 16:06 Vital Signs Reviewed: Yes Respiratory: Positive: Lungs clear, Normal breath sounds, No respiratory distress, No accessory muscle use Cardiovascular: Positive: RRR, No Murmur, Pulses Normal, Brisk Capillary Refill Abdomen Description: Positive: Nontender, No Organomegaly, Soft. Negative: CVA Tenderness (R), CVA Tenderness (L), Distended, Guarding, Hepatomegaly, Splenomegaly Bowel Sounds: Positive: Present Musculoskeletal Exam: Normal Neurological Exam: Normal Psychological Exam: Normal Skin Exam: Normal Complaint Female Dx - Course Course Of Treatment: Urinalysis is positive for leukocytes. Urine hCG negative. Patient is comfortable here and in no distress. - Differential Dx/Diagnosis Provider Diagnosis: UTI (urinary tract infection) Discharge ED - Sign-Out/Discharge Documenting (check all that apply): Patient Departure All imaging exams completed and their final reports reviewed: No Studies - Discharge Plan Condition: Good Disposition: HOME Prescriptions: Phenazopyridine TAB* [Pyridium 100 mg TAB*] 100 mg PO TID PRN #6 tab PRN Reason: Spasms Sulfamethox/Trimethoprim DS* [Bactrim DS 800/160 TAB*] 1 tab PO BID 5 Days #10 tab Patient Education Materials: Urinary Tract Infection in Women (DC) Referrals: Nicki Davis PA [Primary Care Provider] - Additional Instructions: Increase fluids, follow-up with your primary care provider if no improvement in 5 days. Go to the emergency room if you develop any fever, chills, back pain or unable keep medicine down. Take the Bactrim with food. - Billing Disposition and Condition Condition: GOOD Disposition: Home
--- NOTE | 2019-09-26 07:02 | UC ---
- Progress Note Progress Note: urine - no growth no change Course/Dx - Diagnoses Provider Diagnoses: UTI (urinary tract infection) Discharge ED - Sign-Out/Discharge Documenting (check all that apply): Post-Discharge Follow Up All imaging exams completed and their final reports reviewed: No Studies - Discharge Plan Condition: Good Disposition: HOME Prescriptions: Phenazopyridine TAB* [Pyridium 100 mg TAB*] 100 mg PO TID PRN #6 tab PRN Reason: Spasms Sulfamethox/Trimethoprim DS* [Bactrim DS 800/160 TAB*] 1 tab PO BID 5 Days #10 tab Patient Education Materials: Urinary Tract Infection in Women (DC) Referrals: Nicki Davis PA [Primary Care Provider] - Additional Instructions: Increase fluids, follow-up with your primary care provider if no improvement in 5 days. Go to the emergency room if you develop any fever, chills, back pain or unable keep medicine down. Take the Bactrim with food. - Billing Disposition and Condition Condition: GOOD Disposition: Home
== END 2019-09-23 16:55 | disposition home or self-care (01) ==
LOC: UCCORT 15:33
DX: N39.0 Urinary tract infection, site not specified (principal); Z88.5 Allergy status to narcotic agent
CPT/HCPCS: 81003; 84702; 87086; 99212; G0463

== ENCOUNTER 2019-11-24 10:01 | Emergency (ER) | payer BC ==
[2019-11-24 11:09] VITALS: BP 118/72
--- NOTE | 2019-11-24 11:34 | ED ---
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 Denies f/c/n/v/d - History of Current Complaint Chief Complaint: UCRespiratory Time Seen by Provider: 11/24/19 10:57 Hx Obtained From: Patient Onset/Duration: Sudden Onset Severity: Moderate Cough: Nonproductive - Epiglottits Risk Factors Epiglottis Risk Factors: Negative - Allergies/Home Medications Allergies/Adverse Reactions: Allergies Allergy/AdvReac Type Severity Reaction Status Date / Time oxycodone Allergy Severe Vomiting Verified 11/24/19 10:58 Home Medications: Home Medications ALPRAZolam TAB* [Xanax TAB*] 0.75 mg PO BEDTIME 03/27/16 [History Confirmed 05/07] Levothyroxine TAB* [Synthroid TAB*] 50 mcg PO QAM 03/27/16 [History Confirmed ] Multivitamins/Minerals TAB* [Thera M Plus TAB*] 1 tab PO 1700 03/27/16 [History Confirmed 11/24/19] Bifidobacterium Infantis [Align] 4 mg PO BEDTIME 12/17/17 [History Confirmed 05/07] Ascorbic Acid [Vitamin C] 250 mg PO 1700 08/21/18 [History Confirmed 11/24/19] Ferrous Gluconate 27mg 27 mg PO 1700 08/21/18 [History Confirmed 11/24/19] Cholecalciferol TAB* [Vitamin D TAB*] 1 tab PO DAILY 09/23/19 [History Confirmed 11/24/19] Amoxicillin/Clavulanate TAB* [Augmentin TAB 500 mg*] 500 mg PO BID 7 Days #14 tab 11/24/19 [Rx] Calcium Phosphate Trib/Vit D3 [Calcium Adult Gummies] 1 chw PO DAILY 11/24/19 [ History Confirmed 11/24/19] Elderberry Gummi 1 DAILY 11/24/19 [History] Naproxen Sodium [Aleve] 2 tab PO PRN 11/24/19 [History] PMH/Surg Hx/FS Hx/Imm Hx Previously Healthy: Yes Endocrine/Hematology History: Reports: Hx Thyroid Disease - hypo/hasimotos, Hx Anemia - borderline- takes ferrous gluconate Cardiovascular History: Denies: Hx Atrial Fibrillation, Hx Congenital Heart Disease, Hx Myocardial Infarction Respiratory History: Denies: Hx Asthma, Hx Sleep Apnea GI History: Reports: Hx Gall Bladder Disease - s/p cholecystectomy, Hx Irritable Bowel, Other GI Disorders - gastroparesis History: Reports: Other Problems/Disorders - Rt Bartholin's cyst requiring marsupialization Sensory History: Denies: Hx Contacts or Glasses, Hx Hearing Aid Opthamlomology History: Denies: Hx Contacts or Glasses Psychiatric History: Reports: Hx Anxiety - Cancer History Hx Chemotherapy: No Hx Radiation Therapy: No - Surgical History Surgery Procedure, Year, and Place: 2 c-sections; 3-marsupialization 02/2017, 2017. tubal ligation. gallbladder. fibroids. lasik eye. left left leg superficial vein removed Hx Anesthesia Reactions: Yes - gets very nausea with sever emesis- zofran and patch do not work Infectious Disease History: No Infectious Disease History: Denies: Traveled Outside the [place] in Last 30 Days - Family History Known Family History: Positive: None Negative: Cardiac Disease, Hypertension, Diabetes - Social History Alcohol Use: Weekly Alcohol Amount: weekends wine Hx Substance Use: No Substance Use Type: Reports: None Hx Tobacco Use: No Smoking Status (MU): Never Smoked Tobacco Review of Systems Constitutional: Negative Eyes: Negative ENT: Negative Positive: Sore Throat Cardiovascular: Negative Negative: Shortness Of Breath, Cough Gastrointestinal: Negative Genitourinary: Negative Musculoskeletal: Negative Skin: Negative Neurological/Mental Status: Negative Psychological: Normal All Other Systems Reviewed And Are Negative: Yes Physical Exam - Summary Physical Exam Summary: Vital Signs Reviewed: Yes Appearance: Positive: No Pain Distress Skin: Positive: Warm Head/Face: Positive: Normal Head/Face Inspection Eyes: Positive: Normal ENT: Positive: mild pharyngeal erythema w/o exudates Dental: Negative: Cervical Lymphadenopathy Neck: Positive: Supple Respiratory/Lung Sounds: Positive: Clear to Auscultation Cardiovascular: Positive: Normal, RRR, S1, S2 Abdomen Description: Positive: Nontender Musculoskeletal: Positive: Normal Vital Signs On Initial Exam: Initial Vitals Temp Pulse Resp BP Pulse Ox 37.3 C 92 16 118/72 100 11/24/19 11:01 11/24/19 11:01 11/24/19 11:01 11/24/19 11:01 11/24/19 11:01 Diagnostics - Vital Signs Vital Signs Temp Pulse Resp BP Pulse Ox 11/24/19 11:01 37.3 C 92 16 118/72 100 - Laboratory Lab Results: Lab Results 11/24/19 Range/Units 11:15 Group A Strep Rapid Positive H (Negative) Lab Statement: Any lab studies that have been ordered have been reviewed, and results considered in the medical decision making process. EENT Course/Dx - Course Assessment/Plan: rapid strep positive - Diagnoses Provider Diagnoses: Strep pharyngitis Discharge ED - Sign-Out/Discharge Documenting (check all that apply): Patient Departure All imaging exams completed and their final reports reviewed: No Studies - Discharge Plan Condition: Stable Disposition: HOME Prescriptions: Amoxicillin/Clavulanate TAB* [Augmentin TAB 500 mg*] 500 mg PO BID 7 Days #14 tab Patient Education Materials: Strep Throat (ED) Referrals: Nicki Davis PA [Primary Care Provider] - - Billing Disposition and Condition Condition: STABLE Disposition: Home
--- NOTE | 2019-11-27 08:36 | UC ---
- Progress Note Progress Note: Patient call with regard to no improvement in strep sx on day 3 of augmentin. Requests change of rx. I sent in rx for cephalexin. If she has persistent sore throat after 4 doses of cephalexin, then she will need to be re-evaluated for other causes. Course/Dx - Diagnoses Provider Diagnoses: Strep pharyngitis Discharge ED - Sign-Out/Discharge Documenting (check all that apply): Post-Discharge Follow Up All imaging exams completed and their final reports reviewed: No Studies - Discharge Plan Condition: Stable Disposition: HOME Prescriptions: Amoxicillin/Clavulanate TAB* [Augmentin TAB 500 mg*] 500 mg PO BID 7 Days #14 tab cephALEXin [Keflex] 500 mg PO BID #20 capsule Patient Education Materials: Strep Throat (ED) Referrals: Nicki Davis PA [Primary Care Provider] - - Billing Disposition and Condition Condition: STABLE Disposition: Home
== END 2019-11-24 11:29 | disposition home or self-care (01) ==
LOC: UCCORT 10:01
DX: J02.0 Streptococcal pharyngitis (principal); E07.89 Other specified disorders of thyroid; K58.9 Irritable bowel syndrome, unspecified; F41.9 Anxiety disorder, unspecified; D64.9 Anemia, unspecified; Z88.5 Allergy status to narcotic agent; Z79.890 Hormone replacement therapy; Z79.899 Other long term (current) drug therapy
CPT/HCPCS: 87651; 99212; G0463